=== PATIENT | female | born 1990 | race African-American/Black ===

== ENCOUNTER 2021-09-09 16:23 | Outpatient (CLI) | payer OTHER ==
[2021-09-09 23:51] LABS: SARS-CoV-2 PCR by NAA Not Detected (NotDetected)
== END 2021-09-09 16:24 | disposition home or self-care (01) ==
LOC: CSHLAB 16:23
PROVIDERS: ATTEND Internal Medicine Gastroenterology
DX: Z20.822 Contact with and (suspected) exposure to COVID-19 (principal); R10.9 Unspecified abdominal pain; K92.2 Gastrointestinal hemorrhage, unspecified; K92.0 Hematemesis
CPT/HCPCS: U0003; U0005

== ENCOUNTER 2021-09-12 08:40 | Day surgery (SDC) | payer OTHER ==
[2021-09-09 15:35] VITALS: BMI 40.1
[2021-09-12] MEDS ORDERED: Lidocaine 1% MPF 2 ML VIAL ONE (08:54)
[2021-09-12 09:47] LABS: BHCG - Serum Negative (NEGATIVE); Pregs Control Background? CLEAR/WHITE (CLR/WHITE); Pregs Control Bar Appear? YES (CONTROL BAR)
[2021-09-12] MEDS ORDERED: PROPOFOL 40 ML ONE (10:04)
[2021-09-12] MEDS ORDERED: Midazolam HCl 2 mg/2 ml Vial ONE ×2 (10:04→10:07)
[2021-09-12] MEDS ORDERED: Glycopyrrolate 0.2 MG/ML 5 ML SYRINGE ONE (10:21)
== END 2021-09-12 11:15 | disposition home or self-care (01) ==
LOC: CSHSDC 08:40
PROVIDERS: ATTEND Internal Medicine Gastroenterology
PROC: 0DB68ZZ Excision of Stomach, Via Natural or Artificial Opening Endoscopic (ICD-10-PCS; principal; 2021-09-12)
DX: K29.50 Unspecified chronic gastritis without bleeding (principal); K44.9 Diaphragmatic hernia without obstruction or gangrene
CPT/HCPCS: 36415; 84703; 88305; 88312; J2250; J2704